=== PATIENT | female | born 1965 | race Caucasian/White ===

== ENCOUNTER 2020-08-28 15:12 | Outpatient (REF) | payer BC, SELFPAY ==
--- NOTE | ~2020-08-28 | XR_ITS ---
EXAMINATION: CR CHEST CLINICAL INFORMATION: Tachycardia, unspecified. COMPARISON: None TECHNIQUE: 2 views of the chest were obtained. FINDINGS: The cardiomediastinal silhouette is within normal limits in size. Lungs bilaterally are symmetrically expanded and clear. No focal consolidation, effusion or pneumothorax is seen. Mild convex right thoracolumbar scoliosis is seen. A bone anchor is noted in the left humeral head. There is widening of the left AC joint, consistent with prior distal clavicle resection. XR/XR chest 2V IMPRESSION: No acute cardiopulmonary process.
[2020-08-28 16:15] LABS: MANUAL DIFF FLAG NO
[2020-08-28 16:21] LABS: Basophils Percent Auto 0.5 % (0-2); Eosinophils Absolute Auto 0.1 X10*3/uL (0.0-0.4); Eosinophils Percent Auto 0.9 % (0-4); Hematocrit 38.8 % (37-47); Imm Gran Abs Auto 0.01 X10*3/uL (0.00-0.03); Imm Gran Pct Auto 0.1 % (0.0-0.4); Lymphocytes Absolute Auto 1.8 X10*3/uL (1.2-4.9); Lymphocytes Percent Auto 23.6 % (20-40); Mean Corpuscular HGB Conc 33.5 g/dl (31.0-35.0); Mean Corpuscular Hemoglobin 30.8 pg (27.0-33.0); Mean Corpuscular Volume 91.9 fL (80-98); Monocytes Absolute Auto 0.3 X10*3/uL (0.1-1.2); Monocytes Percent Auto 4.3 % (2-11); Neutrophils Absolute Auto 5.4 X10*3/uL (2.0-8.3); Neutrophils Percent Auto 70.6 % (45-73); Platelet Count 223 X10*3/uL (160-400); Red Blood Count 4.22 X10*6/uL (4.20-5.50); Red Cell Distribution Width 12.5 % (11.0-16.0); White Blood Count 7.7 X10*3/uL (4.8-10.8)
[2020-08-28 16:52] LABS: Alanine Aminotransferase 16 U/L (0-31); Albumin Level 4.8 g/dL (3.5-5.0); Alkaline Phosphatase 76 U/L (39-117); Anion Gap 15 (12-20); Aspartate Amino Transferase 16 U/L (5-31); B Type Natriuretic Peptide 10 pg/mL (<100); Bilirubin Total 0.5 mg/dL (0.0-1.0); Blood Urea Nitrogen 15 mg/dL (9-16); Carbon Dioxide 27 mmol/L (22-29); Chloride 102 mmol/L (96-108); Estimated Glomerular Filt Rate > 60; Glucose Random 86 mg/dL (60-115); Potassium 4.5 mmol/L (3.3-5.1); Sodium 139 mmol/L (135-145); Total Protein 7.3 g/dL (6.5-8.0); Troponin-I High Sensitivity < 3.5 ng/L (<3.5-17.0)
[2020-08-28 17:07] LABS: TSH reflex Free T4 0.91 uIU/mL (0.32-4.0)
== END 2020-08-28 15:13 | disposition home or self-care (01) ==
LOC: HO.XRAY 15:12
PROVIDERS: PCP Family Medicine; Visit Provider Physician Assistant
DX: R00.0 Tachycardia, unspecified (principal); R42 Dizziness and giddiness; M79.622 Pain in left upper arm; F48.8 Other specified nonpsychotic mental disorders
CPT/HCPCS: 36415; 71046; 80053; 83880; 84443; 84484; 85025

== ENCOUNTER 2021-03-04 12:05 | Outpatient (REF) | payer BC, SELFPAY ==
--- NOTE | ~2021-03-04 | MM_ITS ---
EXAMINATION: MM SCREENING DIGITAL BREAST TOMOSYNTHESIS, BILATERAL CLINICAL INFORMATION: Screening. Asymptomatic. The lifetime risk of breast cancer based on the Tyrer-Cuzick Model is 9%. COMPARISON: Mammography: 02/13/2020, 04/24/2018, 03/28/2017, 02/16/2016 TECHNIQUE: Digital breast tomosynthesis is performed in both the craniocaudal and mediolateral oblique views along with computer-aided detection (CAD). Synthesized 2D images are generated from the tomosynthesis. FINDINGS: There are scattered areas of fibroglandular density (ACR BI-RADS breast composition Category b). Parenchymal pattern is similar to prior studies. There is no developing density or interval mass or architectural abnormality. Scattered parenchymal asymmetries are similar to prior exams. There are no abnormal calcifications. The axilla and skin contours are unremarkable. MM/MM tomosynthesis screening BI IMPRESSION: No mammographic evidence of malignancy. ASSESSMENT: BI-RADS 2: Benign RECOMMENDATION: Routine annual mammography screening. This patient's information was entered into a reminder system with a target due date for their next mammogram.
== END 2021-03-04 12:06 | disposition home or self-care (01) ==
LOC: HO.MAMMO 12:05
PROVIDERS: PCP Family Medicine; Visit Provider Family Medicine
DX: Z12.31 Encounter for screening mammogram for malignant neoplasm of breast (principal)
CPT/HCPCS: 77063; 77067

== ENCOUNTER 2021-09-03 09:00 | Outpatient (REF) | payer BC, SELFPAY ==
[2021-09-03 11:31] LABS: Appearance Urine HAZY; Color Urine YELLOW; Glucose Urine UA NEG (NEG); Leukocyte Esterase Urine NEG (NEG); Nitrite Urine NEG (NEG); Urine Blood 1+ (NEG); Urine Ketones NEG (NEG); Urine Protein NEG (NEG-TRACE)
[2021-09-03 11:45] LABS: Mucus Urine TRACE /LPF; Squamous Epithelial Cell Urine 1+ /LPF; WBC Urine 0-2 /HPF (0-4)
[2021-09-03 12:04] LABS: Cholesterol 234 mg/dL; HDL Cholesterol 47 mg/dL; LDL Cholesterol Calculated 162 mg/dl; Triglycerides 128 mg/dL
[2021-09-03 12:11] LABS: Vitamin D 25-OH Total 56.3 ng/mL (>30)
== END 2021-09-03 09:01 | disposition home or self-care (01) ==
LOC: HO.WFDLDS 09:00
PROVIDERS: Visit Provider Family Medicine
DX: Z00.00 Encounter for general adult medical examination without abnormal findings (principal); E55.9 Vitamin D deficiency, unspecified
CPT/HCPCS: 36415; 80061; 81001; 82306

== ENCOUNTER 2021-12-16 09:15 | Outpatient (REF) | payer BC, SELFPAY | END 2021-12-16 09:16 | disposition home or self-care (01) | LOC: HO.WFDLDS 09:15 | PROVIDERS: Visit Provider Family Medicine | DX: Z13.89 Encounter for screening for other disorder (principal) ==

== ENCOUNTER 2021-12-24 12:34 | Outpatient (REF) | payer BC, SELFPAY ==
[2021-12-24 14:59] LABS: Alanine Aminotransferase 18 U/L (0-31); Albumin Level 4.8 g/dL (3.5-5.0); Alkaline Phosphatase 74 U/L (39-117); Anion Gap 17 (12-20); Aspartate Amino Transferase 22 U/L (5-31); Bilirubin Total 0.4 mg/dL (0.0-1.0); Blood Urea Nitrogen 21 mg/dL (9-16); Calcium 10.1 mg/dL (8.4-10.2); Carbon Dioxide 25 mmol/L (22-29); Chloride 104 mmol/L (96-108); Cholesterol 239 mg/dL; Estimated Glomerular Filt Rate > 60; Glucose Fasting 90 mg/dL (60-99); HDL Cholesterol 53 mg/dL; LDL Cholesterol Calculated 132 mg/dl; Potassium 4.7 mmol/L (3.3-5.1); Sodium 141 mmol/L (135-145); Total Protein 7.6 g/dL (6.5-8.0); Triglycerides 274 mg/dL
[2021-12-26 05:22] LABS: LDL Cholesterol Direct 155 mg/dL (<100)
== END 2021-12-24 12:35 | disposition home or self-care (01) ==
LOC: HO.WFDLDS 12:34
PROVIDERS: Visit Provider Family Medicine
DX: Z00.00 Encounter for general adult medical examination without abnormal findings (principal); E78.00 Pure hypercholesterolemia, unspecified
CPT/HCPCS: 36415; 80053; 80061; 83721

== ENCOUNTER 2022-03-10 09:14 | Outpatient (REF) | payer BC, SELFPAY ==
--- NOTE | ~2022-03-10 | MM_ITS ---
EXAMINATION: MM SCREENING DIGITAL BREAST TOMOSYNTHESIS, BILATERAL CLINICAL INFORMATION: Screening. Asymptomatic. The lifetime risk of breast cancer based on the Tyrer-Cuzick Model is 6%. COMPARISON: Mammography: 03/04/2021, 06/15/2019, 04/24/2018, 03/28/2017; right breast ultrasound 04/08/2017. TECHNIQUE: Digital breast tomosynthesis is performed in both the craniocaudal and mediolateral oblique views along with computer-aided detection (CAD). Synthesized 2D images are generated from the tomosynthesis. FINDINGS: There are scattered areas of fibroglandular density (ACR BI-RADS breast composition Category b). No architectural abnormality. There are no abnormal calcifications. The bilateral axilla and skin contours are unremarkable. Cyst 3:00 right breast has regressed 2017, no longer demonstrated. Left breast has new smooth nodule with incompletely defined borders central mid 12:00, approximately 0.7 x 0.6 cm. Patient will be recalled for additional imaging. MM/MM tomosynthesis screening BI IMPRESSION: Left: -New nodule with incompletely defined margins mid central 12:00, approximately 0.7 cm. Right: -No mammographic evidence of malignancy. ASSESSMENT: BI-RADS 0: Incomplete - Need Additional Imaging Evaluation RECOMMENDATION: 1. Additional views of the left breast for margins: spot CC, spot ML. 2. Targeted ultrasound left breast. 3. Radiology department staff will contact the patient for additional imaging. This patient's information was entered into a reminder system with a target due date for their next mammogram.
== END 2022-03-10 09:15 | disposition home or self-care (01) ==
LOC: HO.MAMMO 09:14
PROVIDERS: PCP Family Medicine; Visit Provider Family Medicine
DX: Z12.31 Encounter for screening mammogram for malignant neoplasm of breast (principal)
CPT/HCPCS: 77063; 77067

== ENCOUNTER 2022-03-17 09:17 | Outpatient (REF) | payer BC, SELFPAY ==
[2022-03-17 12:08] LABS: Cholesterol 174 mg/dL; HDL Cholesterol 51 mg/dL; LDL Cholesterol Calculated 103 mg/dl; Triglycerides 104 mg/dL
== END 2022-03-17 09:18 | disposition home or self-care (01) ==
LOC: HO.WFDLDS 09:17
PROVIDERS: Visit Provider Family Medicine
DX: Z00.00 Encounter for general adult medical examination without abnormal findings (principal)
CPT/HCPCS: 36415; 80061

== ENCOUNTER 2022-03-25 13:54 | Outpatient (REF) | payer BC, SELFPAY ==
--- NOTE | ~2022-03-25 | MM_ITS ---
EXAMINATION: MM DIAGNOSTIC DIGITAL BREAST TOMOSYNTHESIS, LEFT US DIAGNOSTIC ULTRASOUND BREAST, LEFT CLINICAL INFORMATION: Recall for new nodule with incompletely defined margins mid central 12:00 left breast, 0.7 cm. TC score 6%. COMPARISON: Mammography: 03/10/2022, 03/04/2021 TECHNIQUE: Digital breast tomosynthesis is performed. 2D images are generated from the tomosynthesis. The following views are obtained: Spot CC, standard ML. Ultrasound is targeted to the upper left breast using grayscale imaging and color Doppler without and with harmonics. FINDINGS: There are scattered areas of fibroglandular density (ACR BI-RADS breast composition Category b). The additional views demonstrate a 0.7 cm nodule with smooth nodularity margins. No spiculation or associated calcification. Ultrasound demonstrates benign-appearing grouped microcysts 11:30, 3 cm from nipple, with overall size under 1 cm. There is no solid mass or architectural abnormality. Results are discussed with the patient at time of visit. Management plan is for short interval six-month follow-up left mammography, and if warranted, follow-up targeted ultrasound. MM/MM tomosynthesis added views L IMPRESSION: -Benign-appearing grouped microcysts upper outer left breast, just under 1 cm. ASSESSMENT: BI-RADS 3: Probably Benign RECOMMENDATION: Diagnostic left mammography in 6 months. This patient's information was entered into a reminder system with a target due date for their next mammogram.
== END 2022-03-25 13:55 | disposition home or self-care (01) ==
LOC: HO.MAMMO 13:54
PROVIDERS: PCP Family Medicine; Visit Provider Family Medicine
DX: N63.25 Unspecified lump in the left breast, overlapping quadrants (principal)
CPT/HCPCS: 76642; 77061; 77065

== ENCOUNTER 2022-10-07 08:13 | Outpatient (REF) | payer BC, SELFPAY ==
[2022-10-07 11:27] LABS: MANUAL DIFF FLAG NO
[2022-10-07 11:35] LABS: Basophils Percent Auto 0.4 % (0-2); Eosinophils Absolute Auto 0.1 X10*3/uL (0.0-0.4); Eosinophils Percent Auto 1.4 % (0-4); Hematocrit 38.7 % (37.0-47.0); Hemoglobin 12.9 g/dl (12.0-16.0); Imm Gran Abs Auto 0.03 X10*3/uL (0.00-0.03); Imm Gran Pct Auto 0.4 % (0.0-0.4); Lymphocytes Absolute Auto 1.8 X10*3/uL (1.2-4.9); Lymphocytes Percent Auto 22.7 % (20-40); Mean Corpuscular HGB Conc 33.3 g/dl (31.0-35.0); Mean Corpuscular Hemoglobin 31.2 pg (27.0-33.0); Mean Corpuscular Volume 93.5 fL (80.0-98.0); Mean Platelet Volume 11.1 fL (9.4-12.3); Monocytes Absolute Auto 0.5 X10*3/uL (0.1-1.2); Monocytes Percent Auto 6.2 % (2-11); Neutrophils Absolute Auto 5.5 x10*3/uL (2.0-8.3); Neutrophils Percent Auto 68.9 % (45-73); Platelet Count 204 X10*3/uL (160-400); Red Blood Count 4.14 X10*6/uL (4.20-5.50); Red Cell Distribution Width 13.2 % (11.0-16.0)
[2022-10-07 11:50] LABS: Appearance Urine Clear; Color Urine Yellow; Glucose Urine UA Negative (Negative); Leukocyte Esterase Urine Trace (Negative); Nitrite Urine Negative (Negative); PH 5.5 (5.0-9.0); Specific Gravity - Urine 1.025 (1.005-1.025); UMIC TRIGGER UA YES; Urine Blood Trace (Negative); Urine Ketones 15 mg/dL (Negative); Urine Protein Negative (Neg-Trace)
[2022-10-07 11:53] LABS: Bacteria Urine None Seen (None Seen); Hyaline Casts Urine 0-2 /LPF (0-2); Squamous Epithelial Cell Urine 0-2 /HPF (0-2); WBC Urine 0-5 /HPF (0-5)
[2022-10-07 12:17] LABS: Alanine Aminotransferase 13 U/L (0-31); Albumin Level 4.6 g/dL (3.5-5.0); Alkaline Phosphatase 58 U/L (39-117); Anion Gap 14 (12-20); Aspartate Amino Transferase 18 U/L (5-31); Bilirubin Total 0.9 mg/dL (0.0-1.0); Blood Urea Nitrogen 17 mg/dL (9-16); Calcium 10.2 mg/dL (8.4-10.2); Carbon Dioxide 26 mmol/L (22-29); Chloride 105 mmol/L (96-108); Cholesterol 159 mg/dL; Estimated Glomerular Filt Rate > 60; Glucose Fasting 87 mg/dL (60-99); HDL Cholesterol 51 mg/dL; LDL Cholesterol Calculated 88 mg/dl; Potassium 4.5 mmol/L (3.3-5.1); Sodium 140 mmol/L (135-145); Total Protein 7.1 g/dL (6.5-8.0); Triglycerides 102 mg/dL
[2022-10-07 12:18] LABS: TSH reflex Free T4 1.23 uIU/mL (0.32-4.0)
[2022-10-07 12:34] LABS: Microalbum/Creatinine Ratio Ur 4.9 ug/mg cr
== END 2022-10-07 08:14 | disposition home or self-care (01) ==
LOC: HO.WFDLDS 08:13
PROVIDERS: Visit Provider Family Medicine
DX: Z00.00 Encounter for general adult medical examination without abnormal findings (principal); I10 Essential (primary) hypertension
CPT/HCPCS: 36415; 80053; 80061; 81001; 82043; 84443; 85025

== ENCOUNTER 2022-10-07 14:23 | Outpatient (REF) | payer BC, SELFPAY ==
--- NOTE | ~2022-10-07 | MM_ITS ---
EXAMINATION: MM DIAGNOSTIC DIGITAL BREAST TOMOSYNTHESIS, LEFT CLINICAL INFORMATION: Short interval six-month follow-up probable benign nodule central upper left breast, suspected grouped microcysts on ultrasound. TC score 6%. COMPARISON: Prior breast imaging exams including most recent imaging 03/25/2022. TECHNIQUE: Digital breast tomosynthesis is performed in both the craniocaudal and mediolateral oblique views along with computer-aided detection (CAD). Synthesized 2D images are generated from the tomosynthesis. FINDINGS: There are scattered areas of fibroglandular density (ACR BI-RADS breast composition Category b). The nodule for follow-up central upper left breast is substantially decreased in size. This suggests regressing microcysts. The remainder of the left breast is unremarkable. No architectural abnormality or developing density or abnormal calcifications. The axilla is unremarkable. Results are discussed with the patient at time of visit. Will reassess at time of annual bilateral mammography, due in 6 months. MM/MM tomosynthesis diagnostic LT IMPRESSION: -Benign-appearing nodule for follow-up left breast is decreased in size. ASSESSMENT: BI-RADS 3: Probably Benign RECOMMENDATION: Diagnostic mammography at time of annual bilateral exam, due in 6 months. This patient's information was entered into a reminder system with a target due date for their next mammogram.
== END 2022-10-07 14:24 | disposition home or self-care (01) ==
LOC: HO.MAMMO 14:23
PROVIDERS: PCP Family Medicine; Visit Provider Family Medicine
DX: R92.8 Other abnormal and inconclusive findings on diagnostic imaging of breast (principal)
CPT/HCPCS: 77061; 77065

== ENCOUNTER 2022-12-16 07:57 | Outpatient (AMB) | payer BC, SELFPAY ==
[2022-12-16 08:04] VITALS: BP 148/80; PULSE 111; BMI 22.7
--- NOTE | 2022-12-16 08:04 | MHC.OFFVIS ---
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 HPI HPI Comments History of Present Illness Details A 57 y/o female-referred for screening colonoscopy. She has no GI complaints. She has no respiratory cardiac issues Normal bowel pattern, good appetite Days her last a of work and she retires, she is excited about this No nausea, vomiting, hematemesis, hematochezia fever or chills PFSH Surgical History History of History of shoulder surgery Social History Housing: House Alcohol intake: current Alcohol intake frequency: holidays/special occasions only Patient Tobacco Use Status: Never used Tobacco e-Cigarette/Vaping Use: Never Used Second Hand Smoke Exposure: No service: No Current occupational status: employed Current occupational exposures/hazards: No Cognitive needs: No Hearing needs: No Vision needs: No Review of Systems Const All systems reviewed & are unremarkable except as noted in HPI and below Card Denies chest pain and Denies dyspnea Resp Denies dyspnea GI Denies abdominal pain Physical Exam Vital Signs: Last Vital Signs Pulse 111 H 12/16/22 08:04 BP 148/80 H 12/16/22 08:04 BMI result Body Mass Index 22.7 Const General: cooperative, healthy appearing, comfortable, no acute distress and well groomed Orientation/consciousness: patient oriented x3 Limitations: no limitations Eyes Sclerae: sclerae normal Resp Effort & Inspection: normal respiratory effort and able to speak in complete sentences Auscultation: clear to auscultation bilaterally and no wheezes Cardio Rate: regular rate Rhythm: regular rhythm Heart sounds: S1 normal heart sound present and S2 normal heart sound present GI Palpation (GI): Soft to palpation and nontender Auscultation: normal bowel sounds Skin General skin exam: no rashes or lesions noted Neuro General: patient oriented x3 Extrem General: Yes full ROM Psych Appearance: grossly normal and well kempt Mental Status: mental status grossly normal Speech and movement: Normal speech and movement present and Clear speech present Affect: normal affect Attitude: cooperative Thought process: Normal thought process present Thought content: Normal thought content present Judgement: Good judgement present (Psych) Assessment & Plan Assessment & Plan (1) Screening for colon cancer: Code(s): Z12.11 - Encounter for screening for malignant neoplasm of colon Plan: Screening colonoscopy MiraLax Gatorade split prep Plan Screening colonoscopy MiraLax Gatorade split prep Orders: Orders Colonoscopy - GI Use Only Today Z12.11 - Encounter for screening for malignant neoplasm of colon Medications: New bisacodyl (Dulcolax (bisacodyl)) Take 4 tablets by mouth at 12:00pm the day before your procedure. 20 mg (4 x 5 mg) PO ONCE 4 tabs 0RF colonoscopy prep 1 day Z12.11 - Encounter for screening for malignant neoplasm of colon polyethylene glycol 3350 (Miralax) Take as directed by mouth the day before your procedure. 238 grams PO ONCE PRN 238 grams 0RF laxative effect 1 day Patient Instructions: A very pleasant 57-year-old female referred for screening colonoscopy she has no GI complaints. Discussed procedure, rare risk need for escorted due to anesthesia. Agrees to proceed. Encouraged to call questions or concerns Appreciate the opportunity assist in the care this pleasant patient Coding Level of Care Code New Pt Level 3 (71617) Diagnoses Screening for colon cancer Z12.11 Time Spent (min) 30
== END 2022-12-16 08:45 | disposition home or self-care (01) ==
PROVIDERS: PCP Family Medicine; Visit Provider Physician Assistant
DX: Z12.11 Encounter for screening for malignant neoplasm of colon (principal); Z01.818 Encounter for other preprocedural examination
CPT/HCPCS: S0285

== ENCOUNTER → 2022-12-16 07:57 | Outpatient (BNVA) | payer BC, SELFPAY | PROVIDERS: PCP Family Medicine; Visit Provider Physician Assistant ==

== ENCOUNTER 2023-03-01 14:19 | Outpatient (AMB) | payer BC, SELFPAY ==
[2023-03-01 14:35] VITALS: BP 136/72; PULSE 95; O2SAT 100; BMI 23.0
--- NOTE | 2023-03-01 14:35 | A.OFFPC_ITS ---
Vital Signs 03/01/23 14:35 Height 5 ft 2 in Weight 126 lb BMI 23.0 BP 136/72 Blood Pressure Location Lt brachial Position Sitting Pulse 95 Pulse Source Pulse Oximeter Pulse Oximetry (%) 100 Oxygen Delivery Method Room Air Intake Visit Reasons: 3 month f/u BP Intake Note: Patient is here for 3 month follow up on her blood pressure. Allergies cat pelt standardized allergenic ex Allergy (Severe, Verified 03/01/23 14:37) itchy eyes, sneezing,stuffy mnose tree and shrub pollen Allergy (Mild, Verified 03/01/23 14:37) itchy eyes, sneezing. Tobacco use date assessed: 03/01/23 Dental Screening Dental Screen Date: 03/01/23 Did you have a dental visit in the last 12 months?: Yes Did you have a dental problem in the last 6 months where you did not have access to dental care?: No Was dental information given to patient?: Patient has dentist HPI 3 month f/u BP HPI Details 57 y/o female presents to f/u hypertensi on. Blood pressure today 136/72. She is on lisinopril 10mg daily. Pt reports DEXA scan has not called her yet. She has also not heard back from GI yet for her colonoscopy. [facility] Surgical History History of History of shoulder surgery Social History Housing: House Alcohol intake: current Alcohol intake frequency: holidays/special occasions only Patient Tobacco Use Status: Never used Tobacco e-Cigarette/Vaping Use: Never Used Second Hand Smoke Exposure: No service: No Current occupational status: employed Current occupational exposures/hazards: No Cognitive needs: No Hearing needs: No Vision needs: No Questionnaire Thrive Questionnaire Date Thrive assessed: 04/15/22 MICHAEL-7 AMB Questionnaire MICHAEL-7 Date MICHAEL - 7 assessed: 04/15/22 Source: Developed by Drs. Jose Willingham, Berta Strickland, Preston Raymundo and colleagues, with an educational vane from [employer]. Review of Systems Const Denies chills, Denies fatigue, Denies fever(s), Denies headache(s) and Denies weakness ENT Denies dizziness and Denies headache(s) Card Denies dyspnea Resp Denies cough, Denies dyspnea, Denies wheezing and Denies other (shortness of breath) Musc Denies numbness and Denies tingling Neuro Denies dizziness, Denies headache(s), Denies numbness, Denies tingling and Denies weakness Psych Denies anxiety and Denies depression Endo Denies fatigue Aller/Immun Denies wheezing Physical exam (Primary Care) Vital Signs: Last Vital Signs Pulse 95 03/01/23 14:35 BP 136/72 03/01/23 14:35 Pulse Ox 100 03/01/23 14:35 Oxygen Delivery Method Room Air 03/01/23 14:35 BMI result Body Mass Index 23.0 Tobacco/Smoking Status: Tobacco use Status Tobacco use date assessed 03/01/23 03/01/23 14:38 Patient Tobacco Use Status Never used Tobacco 03/01/23 14:38 e-Cigarette/Vaping Use Never Used 03/01/23 14:38 Thrive Assessment: Date of Thrive Assessment Date Thrive assessed 04/15/22 03/01/23 14:38 Const General: well developed; No acute distress Nutritional Appearance: well nourished Orientation/consciousness: patient oriented x3 HENMT Head: Yes normocephalic and Yes atraumatic Eyes General: appearance normal, both eyes and all related structures Pupils: Equal, round and reactive pupils present EOM: EOMs intact bilaterally Resp Effort & Inspection: normal respiratory effort Neuro General: patient oriented x3 and gait normal Cranial nerves: Yes Equal, round and reactive pupils present Psych Affect: normal affect Assessment and Plan Assessment & Plan (1) Essential hypertension: Code(s): I10 - Essential (primary) hypertension Plan: Blood?pressure?is?controlled.??Goal?is?less?than?140/90 No?medication?changes Encouraged?diet?low ?in?salt/sodium.??Encouraged?healthy?diet?and?exercise?and?weight?control. (2) Screening for colon cancer: Code(s): Z12.11 - Encounter for screening for malignant neoplasm of colon Plan: Patient?is?awaiting?scheduling?for?colonoscopy. Gave?her?phone?number?for?gastroenterology (3) Screening for osteoporosis: Code(s): Z13.820 - Encounter for screening for osteoporosis Plan: Bone?density?is?ordered.??She?has?not?heard?from?them Will?ask?the?office?to?check?on?status Orders: Orders Basic Metabolic Panel Today I10 - Essential (primary) hypertension, Z00.00 - Encounter for general adult medical examination without abnormal findings UA and rflx microscopic Today R31.29 - Other microscopic hematuria, Z00.00 - Encounter for general adult medical examination without abnormal findings Urine Dipstick Today R31.29 - Other microscopic hematuria Microalbumin, Random (w Creat) Today I10 - Essential (primary) hypertension Coding Level of Care Code Est Pt Level 3 (46768) Diagnoses Essential hypertension I10 Screening for colon cancer Z12.11 Screening for osteoporosis Z13.820
== END 2023-03-01 15:10 | disposition home or self-care (01) ==
PROVIDERS: PCP Family Medicine; Visit Provider Family Medicine
DX: I10 Essential (primary) hypertension (principal); Z12.11 Encounter for screening for malignant neoplasm of colon; Z13.820 Encounter for screening for osteoporosis
CPT/HCPCS: 99213

== ENCOUNTER 2023-04-12 13:32 | Outpatient (REF) | payer BC, SELFPAY ==
--- NOTE | ~2023-04-12 | MM_ITS ---
EXAMINATION: BONE DENSITOMETRY CLINICAL INDICATION: Menopause. COMPARISON: This is the patient's baseline examination. TECHNIQUE: Using a [employer] DXA System (software version: 13.1) manufactured by [employer], dual-energy x-ray absorptiometry was performed of the lumbar spine and left hip. The images are of good technical quality. Summary results are attached. FINDINGS: LEFT FEMUR, NECK: BMD 0.730 g/cm2, Z-score -0.8, T-score -2.2, osteopenia. LEFT FEMUR, TOTAL: BMD 0.798 g/cm2, Z-score -0.6, T-score -1.7, osteopenia. AP SPINE L1-L4: BMD 1.022 g/cm2, Z-score 0.1, T-score -1.3, osteopenia. IDENTIFIED RISK FACTORS: Menopause, family history (parent hip fracture). HISTORY OF FRACTURE: None listed. MEDICATIONS: Multivitamin, vitamin D. MM/XR DEXA axial skeleton IMPRESSION: 1. DIAGNOSIS: Osteopenia based on the lowest T-score value of -2.2 in the femoral neck applying World Health Organization criteria. 2. 10-YEAR FRACTURE RISK PREDICTION, FRAX: Major osteoporotic fracture (clinical spine, forearm, hip or shoulder) 18.7%. Hip fracture 1.6%. 3. Treatment Recommendations: NOF guidelines recommend consideration for treatment in postmenopausal women and men age 50 and older presenting with the following: -A hip or vertebral (clinical or morphometric) fracture. -T-score less than or equal to -2.5 at the femoral neck or spine after appropriate evaluation to exclude secondary causes. -Low bone mass at the hip or spine and a 10-year fracture probability by FRAX of greater than or equal to 3% for hip fracture or greater than or equal to 20% for major osteoporotic fracture based on the [place] adapted WHO algorithm. 4. Other Recommendations: All treatment decisions require clinical judgment and consideration of individual patient factors, including patient preferences, comorbidities, previous drug use, risk factors not captured in the FRAX model (e.g. frailty, falls, vitamin D deficiency, increased bone turnover, interval significant decline in bone density) and possible under or overestimation of fracture risk by FRAX. Additional medical evaluation for secondary cause of low bone mineral density may be appropriate. FUTURE SCAN RECOMMENDATION: People with diagnosed cases of osteoporosis or at high risk for fracture should have regular bone mineral density tests. For patients eligible for Medicare, routine testing is allowed once every 2 years. The testing frequency can be increased to one year for patients who have rapidly progressing disease, those who are receiving or discontinuing medical therapy to restore bone mass, or have additional risk factors.
--- NOTE | ~2023-04-12 | MM_ITS ---
EXAMINATION: MM DIAGNOSTIC DIGITAL BREAST TOMOSYNTHESIS, BILATERAL CLINICAL INFORMATION: 6 month follow-up for small nodule 12:00 axis mid central left breast measuring 0.7 cm. COMPARISON: Mammography: 10/07/2022 03/25/2022 mammography and ultrasound, 03/10/2022, 03/04/2021, 06/15/2019, and dating back to 2013. TECHNIQUE: Digital breast tomosynthesis is performed in both the craniocaudal and mediolateral oblique views along with computer-aided detection (CAD). Synthesized 2D images are generated from the tomosynthesis. FINDINGS: There are scattered areas of fibroglandular density (ACR BI-RADS breast composition Category b). The small nodule in the 12:00 axis of the left breast has continued to decrease in size, and on prior ultrasound was consistent with a small cluster of cysts. This is benign. No further follow-up required. Otherwise, there are no suspicious masses, suspicious grouped calcifications, or areas of architectural distortion in either breast. The parenchymal pattern is stable from prior exams. MM/MM tomosynthesis diagnostic BI IMPRESSION: There are no findings suspicious for malignancy in either breast. Small cluster of cysts left breast 12:00 axis has continued to regress in size and is benign. No further follow-up recommended. Recommend the patient resume routine annual screening. ASSESSMENT: BI-RADS BI-RADS 2 - Benign Findings RECOMMENDATION: 1 year F/U Results were provided to the patient at time of visit by the technologist. This patient's information was entered into a reminder system with a target due date for their next mammogram.
== END 2023-04-12 13:33 | disposition home or self-care (01) ==
LOC: HO.MAMMO 13:32
PROVIDERS: PCP Family Medicine; Visit Provider Family Medicine
DX: Z13.820 Encounter for screening for osteoporosis (principal); Z78.0 Asymptomatic menopausal state; N63.25 Unspecified lump in the left breast, overlapping quadrants; Z91.89 Other specified personal risk factors, not elsewhere classified
CPT/HCPCS: 77062; 77066; 77080

== ENCOUNTER → 2023-04-12 14:00 | Outpatient (BNV) | payer BC, SELFPAY | PROVIDERS: PCP Family Medicine; Visit Provider Radiology Diagnostic Radiology | DX: N63.25 Unspecified lump in the left breast, overlapping quadrants (principal) | CPT/HCPCS: 77062; 77066 ==

== ENCOUNTER 2023-06-28 09:05 | Outpatient (AMB) | payer BC, SELFPAY ==
[2023-06-28 09:07] VITALS: BP 132/80; PULSE 83; O2SAT 100; BMI 23.5
--- NOTE | 2023-06-28 09:07 | A.OFFPC_ITS ---
Vital Signs 06/28/23 09:07 Height 5 ft 2 in Weight 128 lb 6 oz BMI 23.5 BP 132/80 Blood Pressure Location Lt brachial Position Sitting Pulse 83 Pulse Source Pulse Oximeter Pulse Oximetry (%) 100 Oxygen Delivery Method Room Air Intake Visit Reasons: CPE Intake Note: Patient is here for her physical and to go over bone density results. Allergies cat pelt standardized allergenic ex Allergy (Severe, Verified 06/28/23 09:12) itchy eyes, sneezing,stuffy mnose tree and shrub pollen Allergy (Mild, Verified 06/28/23 09:12) itchy eyes, sneezing. Medication List - Last Reconciled 06/28/23 by Marc Gudino MD atorvastatin 10 mg PO BEDTIME 90 days bisacodyl (Dulcolax (bisacodyl)) 20 mg (4 x 5 mg) PO ONCE 1 day lisinopril 10 mg PO DAILY 30 days polyethylene glycol 3350 (Miralax) 238 grams PO ONCE PRN 1 day Tobacco use date assessed: 06/28/23 Dental Screening Dental Screen Date: 06/28/23 Did you have a dental visit in the last 12 months?: No Did you have a dental problem in the last 6 months where you did not have access to dental care?: No Was dental information given to patient?: Patient has dentist HPI CPE HPI Details 58 y/o female presents to f/u chronic co nditions. Bone density test 04/12/23 shows osteopenia. Mammogram 04/12/23 showed benign findings. [facility] Surgical History History of History of shoulder surgery Social History Housing: House Alcohol intake: current Alcohol intake frequency: holidays/special occasions only Patient Tobacco Use Status: Never used Tobacco e-Cigarette/Vaping Use: Never Used Second Hand Smoke Exposure: No service: No Current occupational status: employed Current occupational exposures/hazards: No Cognitive needs: No Hearing needs: No Vision needs: No Questionnaire PHQ-9 Over the last 2 weeks, how often have you been bothered by any of the following problems? 1. Little interest or pleasure in doing things: not at all 2. Feeling down, depressed, or hopeless: not at all 3. Trouble falling or staying asleep, or sleeping too much: not at all 4. Feeling tired or having little energy: not at all 5. Poor appetite or overeating: not at all 6. Feeling bad about yourself - or that you are a failure or have let yourself or your family down: not at all 7. Trouble concentrating on things, such as reading the newspaper or watching television: not at all 8. Moving or speaking so slowly that other people could have noticed. Or the opposite - being so fidgety or restless that you have been moving around a lot more than usual: not at all 9. Thoughts that you would be better off or of hurting yourself in some way: not at all Total score: 0 Depression Screening Interpretation: Negative Depression Screening Done: Yes 93378 - PHQ-9 Billing: Yes Source: Developed by Drs. Jose Willingham, Berta Strickland, Preston Raymundo and colleagues, with an educational vane from [employer]. Thrive Questionnaire Date Thrive assessed: 06/28/23 I am a: Patient What is your living situation today?: I have a steady place to live Within the past 12 months, did the food you bought not last and you didn't have the money to get more?: Never true Within the past 12 months, did you worry whether your food would run out before you got money to buy more?: Never true Do you have trouble paying for medicines?: No Do you have trouble getting transportation to medical appointments?: No Do you have trouble paying your heating and electricity bill?: No Do you have trouble taking care of your child, family member or friend?: No Do you have trouble with day-to-day activities such as bathing, preparing meals, shopping, managing finances, etc.?: No Are you currently unemployed and looking for a job?: No Are you interested in more education?: No THRIVE Score: 0 AUDIT C Alcohol Use Questionnaire (AUDIT-C) 1. How often do you have a drink containing alcohol?: Monthly or less 2. How many drinks containing alcohol do you have on a typical day when you are drinking?: 1 or 2 3. How often do you have six or more drinks on one occasion?: Never Total Score: 1 MICHAEL-7 AMB Questionnaire MICHAEL-7 Date MICHAEL - 7 assessed: 06/28/23 Feeling nervous, anxious, or on edge: 0 = Not at all Not being able to stop or control worryin = Several days Worrying too much about different things: 0 = Not at all Trouble relaxin = Not at all Being so restless that it is hard to sit still: 0 = Not at all Becoming easily annoyed or irritable: 0 = Not at all Feeling afraid as if something awful might happen: 0 = Not at all Total MICHAEL-7 score (0-4 normal; 5-9 mild; 10-14 moderate; 15-21 severe): 1 Source: Developed by Drs. Jose Willingham, Berta Strickland, Preston Raymundo and colleagues, with an educational vane from [employer]. MICHAEL-7 Assessment Billing MICHAEL-7 Assessment Tool: MICHAEL-7 Assessment 72282 Review of Systems Const Denies chills, Denies fatigue, Denies fever(s), Denies headache(s) and Denies weakness ENT Denies dizziness and Denies headache(s) Card Denies dyspnea Resp Denies cough, Denies dyspnea, Denies wheezing and Denies other (shortness of breath) Musc Denies numbness and Denies tingling Neuro Denies dizziness, Denies headache(s), Denies numbness, Denies tingling and Denies weakness Psych Denies anxiety and Denies depression Endo Denies fatigue Aller/Immun Denies wheezing Physical exam (Primary Care) Vital Signs: Last Vital Signs Pulse 83 06/28/23 09:07 BP 132/80 06/28/23 09:07 Pulse Ox 100 06/28/23 09:07 Oxygen Delivery Method Room Air 06/28/23 09:07 BMI result Body Mass Index 23.5 Tobacco/Smoking Status: Tobacco use Status Tobacco use date assessed 06/28/23 06/28/23 09:20 Patient Tobacco Use Status Never used Tobacco 06/28/23 09:11 e-Cigarette/Vaping Use Never Used 06/28/23 09:11 PHQ-9: PHQ-9 Score PHQ-9: Total score 0 06/28/23 09:43 Depression Screening Interpretation: Negative Thrive Assessment: Date of Thrive Assessment Date Thrive assessed 06/28/23 06/28/23 09:20 Const General: well developed; No acute distress Nutritional Appearance: well nourished Orientation/consciousness: patient oriented x3 HENMT Head: Yes normocephalic and Yes atraumatic Eyes General: appearance normal, both eyes and all related structures Pupils: Equal, round and reactive pupils present EOM: EOMs intact bilaterally Resp Effort & Inspection: normal respiratory effort Neuro General: patient oriented x3 and gait normal Cranial nerves: Yes Equal, round and reactive pupils present Psych Affect: normal affect Assessment and Plan Assessment & Plan (1) Osteopenia: Code(s): M85.80 - Other specified disorders of bone density and structure, unspecified site Plan: Advised?good?sources?of?calcium?and?vitamin-D. Advised?weight-bearing?exercise Will?continue?to?follow Will?check?vitamin-D?level?with?her?next?blood?draw (2) Essential hypertension: Code(s): I10 - Essential (primary) hypertension Plan: Blood?pressure?is?controlled.??Goal?is?less?than?140/90 Continue?lisinopril (3) Breast cancer screening by mammogram: Code(s): Z12. - Encounter for screening mammogram for malignant neoplasm of breast Plan: Mammogram?showed?no?suspicious?lesions.??She?does?note?that?she?has?required?in? ultrasound?in?the?past No?evidence?of?malignan cy?at?recent?mammogram?and?we?will?continue?annual?screening. Orders: Orders Comprehensive [place]. Panel Fast Today Z00.00 - Encounter for general adult medical examination without abnormal findings TSH reflex Free T4 Today Z00.00 - Encounter for general adult medical examination without abnormal findings UA and rflx microscopic Today Z00.00 - Encounter for general adult medical examination without abnormal findings Vitamin D 25-OH Total Today E55.9 - Vitamin D deficiency, unspecified Microalbumin, Random (w Creat) Today I10 - Essential (primary) hypertension Lipid Panel Today Z00.00 - Encounter for general adult medical examination without abnormal findings Coding Level of Care Code Est Pt Level 4 (21377) Diagnoses Osteopenia M85.80 Essential hypertension I10 Breast cancer screening by mammogram Z04.17 Additional Codes MICHAEL-7 Assessment Billing - MICHAEL-7 Assessment Tool: MICHAEL-7 Assessment 32662 ([id number])
== END 2023-06-28 10:11 | disposition home or self-care (01) ==
PROVIDERS: PCP Family Medicine; Visit Provider Family Medicine
DX: M85.80 Other specified disorders of bone density and structure, unspecified site (principal); I10 Essential (primary) hypertension; Z12.31 Encounter for screening mammogram for malignant neoplasm of breast
CPT/HCPCS: 99214

== ENCOUNTER 2023-08-30 07:32 | Day surgery (SDC) | payer BC, SELFPAY ==
[2023-08-29 09:28] VITALS: BMI 22.7
--- NOTE | 2023-08-29 12:28 | P.CONAN_ITS ---
Documented by User: Sapna Pena NP 08/29/23 12:28 HPI - Anesthesia Eval Consult details Narrative: 58yo F for Colonoscopy PMFSH Active Problems Active Problems: All Active Problems Osteopenia (Acute) Screening for osteoporosis (Acute) Microscopic hematuria (Acute) Post-menopausal (Acute) Adult general medical exam (Acute) Abnormal mammogram (Acute) Hyperlipidemia (Acute) Anxiety (Acute) Hypercholesterolemia (Acute) Essential hypertension (Acute) Elevated blood pressure reading without diagnosis of hypertension (Acute) Pressure sensation in left ear (Acute) Tinnitus (Acute) Cervical vertigo (Acute) Cervical strain (Acute) Screening for cervical cancer (Acute) Screening for colon cancer (Acute) Breast cancer screening by mammogram (Acute) Annual physical exam (Acute) Tachycardia (Acute) Brain fog (Acute) Dizziness (Acute) Left axillary pain (Acute) Surgical History Surgical History History of History of shoulder surgery Social History Social History Housing: House Alcohol intake: current Alcohol intake frequency: holidays/special occasions only Patient Tobacco Use Status: Never used Tobacco e-Cigarette/Vaping Use: Never Used Second Hand Smoke Exposure: No Use of substances other than those prescribed or required for medical reasons: No Are you DNR?: No Advance Directives: No Advance Directives Information Provided: Yes service: No Current occupational status: employed Current occupational exposures/hazards: No Cognitive needs: No Hearing needs: No Vision needs: No Meds Allergies Allergy/AdvReac Type Severity Reaction Status Date / Time cat pelt standardized Allergy Severe itchy Verified 06/28/23 09:12 allergenic ex eyes, sneezing,stuffy mnose tree and shrub pollen Allergy Mild itchy Verified 06/28/23 09:12 eyes, sneezing. Exam Height,Weight and Vital Signs: Height 5 ft 2 in Weight 56.2 kg Assessment and Plan Assessment Anesthesia Assessment: Chart Reviewed Documented by User: Elliot Sin MD 08/30/23 08:53 [facility] Family History Family history of problems with anesthesia: No Surgical History Surgical History History of History of shoulder surgery History of Problems with Anesthesia: No Social History Social History Housing: House Alcohol intake: current Alcohol intake frequency: holidays/special occasions only Patient Tobacco Use Status: Never used Tobacco e-Cigarette/Vaping Use: Never Used Second Hand Smoke Exposure: No Use of substances other than those prescribed or required for medical reasons: No Are you DNR?: No Advance Directives: No Advance Directives Information Provided: Yes service: No Current occupational status: employed Current occupational exposures/hazards: No Cognitive needs: No Hearing needs: No Vision needs: No Meds Allergies Allergy/AdvReac Type Severity Reaction Status Date / Time cat pelt standardized Allergy Severe itchy Verified 06/28/23 09:12 allergenic ex eyes, sneezing,stuffy mnose tree and shrub pollen Allergy Mild itchy Verified 06/28/23 09:12 eyes, sneezing. Exam Airway Mallampati Class: II TM Dist: >3cm Neck ROM: Full Loose/Missing/Broken Teeth: No Heart: rrr Lungs: cta Assessment and Plan Assessment Anesthesia Assessment: Anesthesia Plan Discussed Final Anesthetic Review Family History of Problems with Anesthesia: No History of Problems with Anesthesia: No NPO: Yes ASA Class: II Final Preanesthetic Review: No Changes in Pt Med Stat, Meds/Allgs Chart Reviewed, Consent Obtained/Reviewed and Anes Risks/Benef Reviewed Patient Risk: Intermediate Procedure Risk: Intermediate Anesthetic Plan Anesthetic Plan: MAC: Disposition: Standard PACU
[2023-08-30 08:44] VITALS: BP 132/80; PULSE 109; RESP 18; TEMP 36.6; O2SAT 99
[2023-08-30] MEDS: Lactated Ringers 1,000 ML 100 ML IVCONT (09:23)
--- NOTE | 2023-08-30 09:29 | MHC.SHP ---
Pre-Procedural Eval Section A - 24 Hr Update-Section A only Date of Service: 08/30/23 Section B - Complete if H&P > 30 days Chief Complaint: Encounter for screening for malignant neoplasm of Details of Present Illness: aunt with CRC Relevant Family History (Specify if Yes): Yes Relevant Social History: None Present Medications: see Short Stay Collaborative assessment Medical History: Significant History (HTn, HLp) History of Previous Operations: Relevant previous surgery/procedure and date(s) (History of History of shoulder surgery) Allergies: Allergies Allergy/AdvReac Type Severity Reaction Status Date / Time cat pelt standardized Allergy Severe itchy Verified 06/28/23 09:12 allergenic ex eyes, sneezing,stuffy mnose tree and shrub pollen Allergy Mild itchy Verified 06/28/23 09:12 eyes, sneezing. Review of Systems Sugical H&P ROS: Negative: Constitution, Cardiovascular, Respiratory, Neurological, Psychiatric, Hem-Onc, Allergic/Immunologic, Gastrointestinal, Genitourinary, Musculoskeletal, Integumentary, Endocrine and Eyes/Ears/Nose/Throat Exam Surgical H&P Exam: Normal: HEENT, Normal: Heart, Normal: Lungs, Normal: Extremities, Normal: Abdomen, Normal: Skin and Normal: Neurological Plan Diagnosis/Plan: Unchanged I have reviewed the history and physical and performed a pertinent physical examination on my patient. No changes have occurred unless specified. Time Spent With Patient Time: Total time managing care of this patient today ____ minutes.
--- NOTE | 2023-08-30 10:00 | P.OPN-COLO_ITS ---
Colonoscopy Operative Note Operative Note Date of Service: 08/30/23 Narrative: Operative Information Procedure Description: Colonoscopy Indication: screening Anesthesia: MAC COLONOSCOPY Instrument: Olympus variable stiffness pediatric scope 190L Colonoscopy Monitoring: Vital signs and clinical assessment, continuous EKG monitoring, Pulse oximetry, Carbon Dioxide monitoring and blood pressure monitoring were done throughout the procedure. Colon withdrawal time was 7 minutes. Procedure: The patient was placed in the left lateral decubitis position and pre-procedure medications were administered. After a digital rectal examination of the ano-rectum, the video colonoscope was inserted into the rectum and advanced through the colon to the cecum/TI. The colonoscope was slowly withdrawn in a retrograde panoramic fashion and the colon mucosa was carefully examined including a retroflexed view of the rectum. Findings and interventions are described below. Procedure Difficulty: easy Findings: Terminal Ileum-normal Cecum:normal Right sided retroflexion- normal Ascending Colon: normal Transverse Colon -normal Descending Colon:normal Sigmoid Colon: normal Rectum: Retroflexion with s internal hemorrhoids seen, grade [] Anorectum - normal Intervention: [] Colon preparation: [place] Bowel Preparation Scale Right colon; [] Transverse colon: [] Left colon; [] (0 = Unprepared colon segment with mucosa not seen due to solid stool that cannot be cleared. 1 = Portion of mucosa of the colon segment seen, but other areas of the colon segment not well seen due to staining, residual stool and/or opaque liquid. 2 = Minor amount of residual staining, small fragments of stool and/or opaque liquid, but mucosa of colon segment seen well. 3 = Entire mucosa of colon segment seen well with no residual staining, small fragments of stool or opaque liquid) Impression and Post Procedure Diagnosis: diverticulosis colon polyps internal hemorrhoids Plan: High fiber diet leaflet Avoid straining at stool, epsom salts and sitz bath, anusol supps or cream Repeat Colonoscopy in [] years or earlier if clinically indicated Above findings were reviewed with the patient and relevant handouts were provided if indicated.
[2023-08-30 10:04] VITALS: BP 119/69; PULSE 78; RESP 17; TEMP 36.3; O2SAT 97
[2023-08-30 10:25] VITALS: BP 133/80; PULSE 77; RESP 18; TEMP 36.2; O2SAT 99
== END 2023-08-30 10:51 | disposition home or self-care (01) ==
PROVIDERS: PCP Family Medicine; Visit Provider Internal Medicine Gastroenterology
PROC: 0DJD8ZZ Inspection of Lower Intestinal Tract, Via Natural or Artificial Opening Endoscopic (ICD-10-PCS; CPT 45378; principal; 2023-08-30 10:30)
DX: Z12.11 Encounter for screening for malignant neoplasm of colon (principal); K64.8 Other hemorrhoids; Z80.0 Family history of malignant neoplasm of digestive organs; I10 Essential (primary) hypertension
CPT/HCPCS: 45378; J2704

== ENCOUNTER → 2023-08-30 07:32 | Outpatient (BNV) | payer BC, SELFPAY | PROVIDERS: PCP Family Medicine; Visit Provider Internal Medicine Gastroenterology | DX: Z12.11 Encounter for screening for malignant neoplasm of colon (principal); K64.8 Other hemorrhoids; K57.30 Diverticulosis of large intestine without perforation or abscess without bleeding | CPT/HCPCS: 45378 ==

== ENCOUNTER 2023-09-13 07:51 | Outpatient (AMB) | payer BC, SELFPAY ==
[2023-09-13 07:59] VITALS: BP 136/64; PULSE 108; BMI 22.5
--- NOTE | 2023-09-13 07:59 | A.OFFVIS_ITS ---
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 Medication List - Last Reconciled 09/13/23 by Evy Napoles PA-C atorvastatin 10 mg PO BEDTIME 90 days lisinopril 10 mg PO DAILY 30 days HPI Comments Details: A 58 y/o female f/u after screening colonoscopy- no polyps She has no current GI complaints She has a twinge if a cramp that resolves after BM- began week before procedure- no other associated symptoms no rectal bleeding or change in bowels Reviewed report and recommendations She has no nausea, vomiting, hematemesis, hematochezia fever chills PFSH Surgical History (Updated 09/07/23 @ 13:53 by Marion Oh) Hx of colonoscopy History of History of shoulder surgery Social History Housing: House Alcohol intake: current Alcohol intake frequency: holidays/special occasions only Patient Tobacco Use Status: Never used Tobacco e-Cigarette/Vaping Use: Never Used Second Hand Smoke Exposure: No service: No Current occupational status: employed Current occupational exposures/hazards: No Cognitive needs: No Hearing needs: No Vision needs: No Review of Systems Const Details: All systems reviewed and are negative Physical Exam Vital Signs: Last Vital Signs Pulse 108 H 09/13/23 07:59 BP 136/64 09/13/23 07:59 BMI result Body Mass Index 22.5 Const General: cooperative, healthy appearing, comfortable, no acute distress and anxious Orientation/consciousness: patient oriented x3 Limitations: no limitations Resp Effort & Inspection: normal respiratory effort and able to speak in complete sentences Neuro General: patient oriented x3 Extrem General: Yes full ROM Psych Appearance: grossly normal and well kempt Mental Status: mental status grossly normal Speech and movement: Normal speech and movement present Affect: normal affect Attitude: cooperative Thought process: Normal thought process present Thought content: Normal thought content present Insight: Good insight present (Psych) Judgement: Good judgement present (Psych) Results Reviewed Results Reviewed: orrection to note: Findings: diverticulosis in sigmoid internal hemorrhoids no polyps or masses Plan: 1/repeat colonoscopy 10 yrs or earlier if clinically indicated, hgih fiber diet Assessment & Plan Assessment & Plan (1) Hemorrhoids: Code(s): K64.9 - Unspecified hemorrhoids Category: Medical (2) Diverticulosis: Code(s): K57.90 - Diverticulosis of intestine, part unspecified, without perforation or abscess without bleeding Category: Medical Plan 10 year colonoscopy- sooner if indicated Patient Instructions: 10 year colonoscopy- sooner if indicated Coding Level of Care Code Est Pt Level 3 (40379) Diagnoses Hemorrhoids K64.9 Diverticulosis K57.90 Time Spent (min) 20
== END 2023-09-13 09:20 | disposition home or self-care (01) ==
PROVIDERS: PCP Family Medicine; Visit Provider Physician Assistant
DX: K64.9 Unspecified hemorrhoids (principal); K57.90 Diverticulosis of intestine, part unspecified, without perforation or abscess without bleeding
CPT/HCPCS: 99213

== ENCOUNTER → 2023-09-13 07:51 | Outpatient (BNVA) | payer BC, SELFPAY | PROVIDERS: PCP Family Medicine; Visit Provider Physician Assistant ==

== ENCOUNTER 2023-11-17 09:59 | Outpatient (REF) | payer BC, SELFPAY ==
[2023-11-17 11:11] LABS: Appearance Urine Clear; Color Urine Yellow; Glucose Urine UA Negative (Negative); Leukocyte Esterase Urine Negative (Negative); Nitrite Urine Negative (Negative); PH 6.5 (5.0-9.0); Urine Blood Negative (Negative); Urine Ketones Negative (Negative); Urine Protein Negative (Neg-Trace)
[2023-11-17 11:44] LABS: Microalbumin Urine < 5.0 mg/L
[2023-11-17 11:49] LABS: Alanine Aminotransferase 18 U/L (0-31); Albumin Level 4.6 g/dL (3.5-5.0); Alkaline Phosphatase 65 U/L (39-117); Anion Gap 12 (12-20); Aspartate Amino Transferase 18 U/L (5-31); Bilirubin Total 0.7 mg/dL (0.0-1.0); Blood Urea Nitrogen 16 mg/dL (9-16); Calcium 10.2 mg/dL (8.4-10.2); Carbon Dioxide 29 mmol/L (22-29); Chloride 106 mmol/L (96-108); Cholesterol 160 mg/dL (<200); Estimated Glomerular Filt Rate > 60; Glucose Fasting 90 mg/dL (60-99); Glucose Random 90 mg/dL (60-115); HDL Cholesterol 52 mg/dL (>40); LDL Cholesterol Calculated 83 mg/dL (<100); Potassium 4.1 mmol/L (3.3-5.1); Sodium 143 mmol/L (135-145); Triglycerides 126 mg/dL (<150)
[2023-11-17 12:06] LABS: TSH reflex Free T4 1.23 uIU/mL (0.32-4.0); Vitamin D 25-OH Total 88.4 ng/mL (>30)
== END 2023-11-17 10:00 | disposition home or self-care (01) ==
LOC: HO.WFDLDS 09:59
PROVIDERS: Visit Provider Family Medicine
DX: Z00.00 Encounter for general adult medical examination without abnormal findings (principal); I10 Essential (primary) hypertension; R31.29 Other microscopic hematuria; E55.9 Vitamin D deficiency, unspecified
CPT/HCPCS: 36415; 80048; 80053; 80061; 81003; 82306; 82570; 84443

== ENCOUNTER 2023-11-17 10:22 | Outpatient (AMB) | payer BC, SELFPAY ==
--- NOTE | 2023-11-17 10:41 | A.OFFPC_ITS ---
Vital Signs 11/17/23 10:48 Height 5 ft 2 in Weight 125 lb BMI 22.9 BP 126/68 Blood Pressure Location Rt brachial Position Sitting Pulse 82 Pulse Source Pulse Oximeter Pulse Oximetry (%) 99 Oxygen Delivery Method Room Air Intake Visit Reasons: CPE Intake Note: Patient is here today for a physical. 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 Tobacco use date assessed: 11/17/23 Dental Screening Dental Screen Date: 06/28/23 HPI CPE HPI Details 58 y/o female presents today for a CPE w ith f/u labs and health maintenance. Labs drawn today and is unavailable yet. Blood pressure today 126/68. She is on lisinopril 10mg daily. Mammogram in March showed benign findings. Recent colonoscopy which was fine, recommended a 10 year follow up. [facility], LAT[facility] Surgical History Hx of colonoscopy History of History of shoulder surgery Social History Housing: House Alcohol intake: current Alcohol intake frequency: holidays/special occasions only Patient Tobacco Use Status: Never used Tobacco e-Cigarette/Vaping Use: Never Used Second Hand Smoke Exposure: No service: No Current occupational status: employed Current occupational exposures/hazards: No Cognitive needs: No Hearing needs: No Vision needs: No Questionnaire Thrive Questionnaire Date Thrive assessed: 06/28/23 MICHAEL-7 AMB Questionnaire MICHAEL-7 Date MICHAEL - 7 assessed: 06/28/23 Source: Developed by Drs. Jose Willingham, Berta Strickland, Preston Raymundo and colleagues, with an educational vane from [employer]. Review of Systems Const Denies chills, Denies fatigue, Denies fever(s), Denies headache(s) and Denies weakness Eyes Denies change in vision ENT Denies dizziness, Denies headache(s), Denies hearing loss, Denies nasal congestion, Denies sinus pain, Denies sinus pressure and Denies sore throat Card Denies chest pain, Denies lightheadedness, Denies dyspnea and Denies other (palpitations) Resp Denies cough, Denies dyspnea and Denies wheezing GI Denies abdominal pain, Denies melena, Denies hematochezia, Denies change in bowel habits, Denies dyspepsia and Denies nausea Denies hematuria and Denies dysuria Musc Denies abnormal gait, Denies myalgias, Denies arthralgias, Denies numbness and Denies tingling Skin/Breast Denies rash, Denies unusual bruising and Denies wounds Neuro Denies abnormal gait, Denies dizziness, Denies headache(s), Denies memory loss, Denies numbness, Denies Sensory deficit (Neuro), Denies tingling and Denies weakness Psych Denies anxiety, Denies depression and Denies memory loss Endo Denies cold intolerance, Denies fatigue, Denies heat intolerance, Denies polydipsia and Denies polyuria Dipesh/Lymph Denies easy bleeding and Denies easy bruising Aller/Immun Denies wheezing Physical exam (Primary Care) Vital Signs: Last Vital Signs Pulse 82 11/17/23 10:48 BP 126/68 11/17/23 10:48 Pulse Ox 99 11/17/23 10:48 Oxygen Delivery Method Room Air 11/17/23 10:48 BMI result Body Mass Index 22.9 Tobacco/Smoking Status: Tobacco use Status Tobacco use date assessed 11/17/23 11/17/23 10:50 Patient Tobacco Use Status Never used Tobacco 11/17/23 10:42 e-Cigarette/Vaping Use Never Used 11/17/23 10:42 Thrive Assessment: Date of Thrive Assessment Date Thrive assessed 06/28/23 11/17/23 10:42 Const General: no acute distress, well developed, alert and awake Nutritional Appearance: well nourished Orientation/consciousness: patient oriented x3 HENMT Head: Yes normocephalic and Yes atraumatic Ears: hearing grossly normal bilaterally and TM's normal bilaterally General nose exam: Normal external nose present and Normal nares present Mouth: Normal oral and palatal mucosa present and moist mucous membranes Teeth and gingiva: dentition normal Throat: Yes posterior oropharynx normal Eyes General: appearance normal, both eyes and all related structures Pupils: Equal, round and reactive pupils present and Pupil accommodation reflex normal EOM: EOMs intact bilaterally Neck Neck: Yes normal visual inspection, Yes no lymphadenopathy and Yes trachea midline Thyroid: Thyroid normal Carotids: no bruits Lymphatic: no lymphadenopathy noted Chest Chest palpation & inspection: normal inspection of the chest Resp Effort & Inspection: normal respiratory effort Auscultation: clear to auscultation bilaterally Cardio Rate: regular rate Rhythm: regular rhythm Heart sounds: S1 normal heart sound present, S2 normal heart sound present, no gallops, no murmurs and no rubs Bruits: no abdominal aortic bruits and no carotid bruits GI Palpation (GI): No Abdominal aortic bruit present, Soft to palpation, nontender, No hepatosplenomegaly present and No Rebound tenderness present Auscultation: normal bowel sounds General: Yes no CVA tenderness Back/Spine/Pelvis Back: no CVA tenderness Cervical Spine: cervical ROM normal and No Cervical spine tenderness Thoracic/Lumbar Spine: thoraco-lumbar ROM normal, No pain with thoraco-lumbar ROM, No thoracic spinal tenderness and No lumbar spinal tenderness Skin Lesions: no lesions Rashes: no rashes Trauma: no lacerations or abrasions Wounds: no wounds Nails: normal Neuro General: patient oriented x3 Cranial nerves: Yes Equal, round and reactive pupils present Cognition (Neuro): normal cognition Gait exam (Neuro): Normal gait present Motor exam (neuro): 5/5 motor strength present throughout Sensory Exam: No Sensory deficit (Neuro) Deep tendon reflexes (DTR's): Right patellar reflex intensity grade: 2+ and Left patellar reflex intensity grade: 2+ Extrem General: Yes normal to inspection and No edema Psych Appearance: grossly normal Affect: normal affect Attitude: cooperative Thought process: Normal thought process present Assessment and Plan Assessment & Plan (1) Annual physical exam: Code(s): Z00.00 - Encounter for general adult medical examination without abnormal findings Plan: 58-year-old?female?presents?for?complete?physical?exam Exam?within?normal?limits?today. Encouraged?healthy?diet?with?active?lifestyle?and?plenty?of?exercise (2) Essential hypertension: Code(s): I10 - Essential (primary) hypertension Plan: Blood?pressure?is?controlled.??Goal?is?less?than?140/90 EKG: ?Normal?sinus?rhythm?with?mild?sinus?arrhythmia, normal?axis,?no?hypertrophy,?no?ST-T-wave?changes Continue?current?medication (3) Hyperlipidemia: Code(s): E78.5 - Hyperlipidemia, unspecified Plan: Taking?atorvastatin She?had?her?labs?drawn?today?and?we?can?follow-up?on?this?at?next?encounter (4) Screening for colon cancer: Code(s): Z12.11 - Encounter for screening for malignant neoplasm of colon Plan: Recent?colonoscopy?was?normal.??Recommended?follow-up?in?10?years Up-to-date (5) Screening for cervical cancer: Code(s): Z12.4 - Encounter for screening for malignant neoplasm of cervix Plan: Followed?by?production control technologist?and?was?told?she?is?due?for?Pap?smear?next?year Up-to-date Follow-up?with?production control technologist?as?recommended (6) Breast cancer screening by mammogram: Code(s): Z12.31 - Encounter for screening mammogram for malignant neoplasm of breast Plan: Mammogram?in?March?showed?no?evidence?of?malignancy Will?continue?annual?screening (7) Screening for osteoporosis: Code(s): Z13.820 - Encounter for screening for osteoporosis Plan: Bone?density?this?past?year?showed?osteopenia She?is?getting?calcium?and?vitamin-D?with?by?active?chews She?is?also?exercising Orders: Orders AMB EKG-In Office Today Z00.00 - Encounter for general adult medical examination without abnormal findings AMB EKG-In Office Today E78.5 - Hyperlipidemia, unspecified, I10 - Essential (primary) hypertension, Z00.00 - Encounter for general adult medical examination without abnormal findings Coding Level of Care Code Est Pt Level 3 (70627) Est Pt Prev Care 40-64y(88023) Diagnoses Annual physical exam Z00.00 Essential hypertension I10 Hyperlipidemia E78.5 Screening for colon cancer Z12.11 Screening for cervical cancer Z12.4 Breast cancer screening by mammogram Z12.31 Screening for osteoporosis Z13.820
[2023-11-17 10:48] VITALS: BP 126/68; PULSE 82; O2SAT 99; BMI 22.9
== END 2023-11-17 11:39 | disposition home or self-care (01) ==
PROVIDERS: PCP Family Medicine; Visit Provider Family Medicine
DX: Z00.00 Encounter for general adult medical examination without abnormal findings (principal); I10 Essential (primary) hypertension; E78.5 Hyperlipidemia, unspecified; Z12.11 Encounter for screening for malignant neoplasm of colon; Z12.4 Encounter for screening for malignant neoplasm of cervix; Z12.31 Encounter for screening mammogram for malignant neoplasm of breast; Z13.820 Encounter for screening for osteoporosis
CPT/HCPCS: 99396

== ENCOUNTER 2024-04-13 13:24 | Outpatient (REF) | payer OTHER, SELFPAY | END 2024-04-13 13:25 | disposition home or self-care (01) | LOC: HO.MAMMO 13:24 | PROVIDERS: Absent Provider Family Medicine; PCP Internal Medicine; Visit Provider Advanced Practice Midwife | DX: Z12.31 Encounter for screening mammogram for malignant neoplasm of breast (principal) | CPT/HCPCS: 77063; 77067 ==

== ENCOUNTER → 2024-04-13 13:45 | Outpatient (BNV) | payer OTHER, SELFPAY | PROVIDERS: Absent Provider Family Medicine; PCP Internal Medicine; Visit Provider Internal Medicine | DX: Z12.31 Encounter for screening mammogram for malignant neoplasm of breast (principal) | CPT/HCPCS: 77063; 77067 ==